=== PATIENT | male | born 1980 | race Hispanic/Latino ===

== ENCOUNTER 2018-07-22 08:23 | Emergency (ER) | payer OTHER ==
[2018-07-22 08:52] LABS: Lavender RECEIVED; Red RECEIVED
[2018-07-22 08:59] LABS: #Lymphocytes 1.5 thou/uL (1.20-3.40); #Monocytes 0.6 thou/uL (0.11-0.59); #Neutrophils 5.4 thou/uL (1.40-6.50); %Basophils 0.6 % (0.0-1.0); %Lymphocytes 19.9 % (21.0-51.0); %Monocytes 7.5 % (0.0-10.0); Hemoglobin 15.2 g/dL (14.0-18.0); Mean Corpuscular HGB CONC 34.5 g/dL (32.0-36.0); Mean Corpuscular Hemoglobin 31.9 pg (27.0-31.0); Mean Corpuscular Volume 92.3 fL (78.0-98.0); Mean Platelet Volume 8.4 fL (7.4-10.4); Platelet Count 191 thou/uL (130-400); RBC Distribution Width 11.5 % (11.5-14.5); Red Blood Cell (RBC) Count 4.79 mill/uL (4.70-6.10); White Blood Cell (WBC) Count 7.5 thou/uL (4.8-10.8)
[2018-07-22 09:17] LABS: ALT (SGPT) 18 U/L (8-55); AST (SGOT) 15 U/L (5-34); Albumin 4.6 g/dL (3.5-5.0); Alkaline Phosphatase 99 U/L (40-150); Anion Gap 12 mmol/L (10-20); BUN (Urea Nitrogen) 9 mg/dL (8.9-20.6); Bilirubin, Total 0.4 mg/dL (0.2-1.2); Calc. Creatinine Clearance 0 mL/min (70-130); Calcium 9.1 mg/dL (7.8-10.44); Carbon Dioxide 23 mmol/L (22-29); Chloride 106 mmol/L (98-107); Estimated GFR-MDRD Greater than 90; Globulin 2.6 g/dL (2.4-3.5); Glucose 91 mg/dL (70-105); Potassium 4.3 mmol/L (3.5-5.1); Protein, Total 7.2 g/dL (6.0-8.3); Sodium 137 mmol/L (136-145)
[2018-07-22] MEDS ORDERED: Lorazepam 2 MG/ML VIAL ONE ×3 (09:36→14:44)
--- NOTE | 2018-07-22 11:43 | CT ---
CT OF THE BRAIN WITHOUT CONTRAST: Date: 07/22/18 INDICATION: Fever with seizures and altered mental status. COMPARISON: None. FINDINGS: There is healed deformity involving bilateral nasal bones, as well as the left medial orbital wall, l ikely related to prior trauma. There is mild mucosal thickening in the ethmoid air cells and left max illary sinuses. Mastoid air cells are clear. Skull is intact. No acute infarct, hemorrhage, or hydrocephalus is present. Septum pellucidum and third ventricle are midline. IMPRESSION: 1. No acute intracranial abnormality. 2. Healed deformity involving the bilateral nasal bones, as well as the left medial orbital wall. 3. Mild paranasal sinus disease. POS: [facility]
[2018-07-22] MEDS ORDERED: levETIRAcetam In NaCl (Iso-Os) 1,000 MG in Premix Bag 1 BAG IVPB SCH (11:45)
--- NOTE | 2018-07-22 12:55 | RAD ---
PORTABLE CHEST: Date: 07/22/18 HISTORY: Fever. FINDINGS: Heart size and mediastinum are within normal limits. Lungs appear clear of any focal infiltrative pro cess. IMPRESSION: No active intrathoracic disease. POS: [facility]
[2018-07-22] MEDS ORDERED: Lidocaine 1% PF 5 ML VIAL ONE (13:03)
[2018-07-22] MEDS ORDERED: Lidocaine 1% (PF) 30 ML VIAL ONE (13:44)
[2018-07-22 15:27] LABS: CSF Source CSF; Clarity Clear (Clear); RBC Count - Manual 0 /cumm (None Seen); RBC Count - Manual 38 /cumm (None Seen); Tube # 1; Tube # 4; WBC/NonHematics Count - Manual 0 /cumm (0-5)
[2018-07-22 15:30] LABS: CSF, Glucose 56 mg/dl (40-70); CSF, Protein 32 mg/dL (15-40)
[2018-07-22 15:39] LABS: Color Of CSF Supernatant COLORLESS (Colorless); Tube # 2; Unspun CSF Color COLORLESS (Colorless)
[2018-07-22] MEDS ORDERED: cefTRIAXone\\ROCEPHIN 2 GM VIAL ONE (18:55)
[2018-07-22 21:02] LABS: Lactic Acid 1.5 mmol/L (0.5-2.2)
== END 2018-07-22 22:34 | disposition short-term general hospital (02) ==
LOC: ERS 08:23
DX: G40.909 Epilepsy, unspecified, not intractable, without status epilepticus (principal); R41.82 Altered mental status, unspecified; R50.9 Fever, unspecified; E03.9 Hypothyroidism, unspecified; Z79.899 Other long term (current) drug therapy
CPT/HCPCS: 36415; 62270; 70450; 71045; 80053; 80177; 80185; 82945; 83605; 84146; 84157; 85025; 87040; 87070; 87205; 87804; 89051; 93005; 94760; 96361; 96365; 96367; 96375; 96376; J0696; J1953; J2001; J2060; J3370; J7050; Q2009